=== PATIENT | male | born 1990 | race African-American/Black ===

== ENCOUNTER 2017-02-25 08:50 | Emergency (ER) | payer OTHER ==
[~2017-02-25] VITALS: Ht 175.3 cm; Wt 72.6 kg
[~2017-02-25 08:50] MED LIST: HYDR-2758 PO; INSU100I16 SQ; ONDA4TAB10 SL; OXAP600T PO; TRAM50TA PO
[2017-02-25 08:58] VITALS: BP 131/77
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
== END 2017-02-25 09:50 | disposition home or self-care (01) ==
LOC: ER 08:50
DX: S42.102A Fracture of unspecified part of scapula, left shoulder, initial encounter for closed fracture (principal); E11.9 Type 2 diabetes mellitus without complications; F12.10 Cannabis abuse, uncomplicated; X58.XXXA Exposure to other specified factors, initial encounter; Y93.89 Activity, other specified; Y99.8 Other external cause status; Y92.89 Other specified places as the place of occurrence of the external cause
CPT/HCPCS: 73030; 99284

== ENCOUNTER 2017-04-20 11:35 | Emergency (ER) | payer OTHER ==
[2017-04-20 11:50] VITALS: BP 118/69
[2017-04-20] MEDS ORDERED: KETOROLAC 60 MG/2 ML VIAL. IM ONE (12:25)
[2017-04-20] MEDS ORDERED: NAPR500T PO (12:27)
[2017-04-20] MEDS ORDERED: HYDR-2758 PO (12:27)
[2017-04-20] MEDS ORDERED: TIZA4CAP3 PO (12:27)
[2017-04-20] MEDS ORDERED: DIAZ5TAB PO (12:27)
--- NOTE | 2017-04-20 12:27 | PHYS DOC ---
Past History Past Medical History: No Pertinent History, Diabetes Past Surgical History: No Surgical History Alcohol Use: Occasionally Drug Use: Marijuana Adult General Chief Complaint Chief Complaint: Neck Pain [facility] HPI She is a pleasant otherwise healthy 26-year-old male who tonight weeks ago fell and mood theater striking the left side of his neck on a couple. He spirits immediate pain without paresthesias midline neck pain or weakness in his upper extremity's. He was seen at another hospital facility in the ER diagnosed with a muscle strain and sent home with anti-inflammatories. It is been to half weeks since he began to treatments. Because of his job he has to continue to move to the right and left turning his neck exacerbating the pain. The pain is still achy and dull and mild 7 of 10 with movements to 10 at rest. Patient says the pain is progressively worse over the course the day although that does not cause any weakness in his arms or numbness and tingling in his hands or arms the pain is worse with range of motion at the shoulder and movement of the neck. Patient denies any other symptoms of night sweats, weight loss, nausea, vomiting, changes in vision, anterior neck pain problems swallowing, change in voice or other symptoms. Patient is looking for just symptomatic treatment single back to work and does not make him sedated and also referral to a primary care doctor that can help take care of his long-term issues. He is a diabetic on insulin and is very well controlled. Review of Systems Review of Systems Constitutional: Denies fever or chills [] Eyes: Denies change in visual acuity, redness, or eye pain [] HENT: Denies nasal congestion or sore throat [] Respiratory: Denies cough or shortness of breath [] Cardiovascular: No additional information not addressed in HPI [] GI: Denies abdominal pain, nausea, vomiting, bloody stools or diarrhea [] : Denies dysuria or hematuria [] Musculoskeletal: Complains primary of left-sided neck pain with radiation to the left shoulder blade. Integument: Denies rash or skin lesions [] Neurologic: Denies headache, focal weakness or sensory changes [] Endocrine: Denies polyuria or polydipsia [] Allergies Allergies Allergies Coded Allergies Type Severity Reaction Last Updated Verified No Known Drug Allergies 02/09/16 No Physical Exam Physical Exam I have reviewed this patient's vital signs on arrival and within normal limits except as her it which is 51 which is bradycardic but is asymptomatic. Constitutional: Well developed, well nourished, no acute distress, non-toxic appearance. [] HENT: Normocephalic, atraumatic, bilateral external ears normal, Eyes: PERRLA, EOMI, conjunctiva normal, no discharge. [] Neck: Is a significant decreased range of motion in the neck there is tenderness to palpation over the PC his muscle on the left. And the sternocleidomastoid on the left as well. He's got marked tenderness to palpation of the trapezius muscle as it inserts into the lateral shoulder and tenderness palpation over the middle and upper portions of the trapezius muscle. Skin: Warm, dry, no erythema, no rash. [] Back: No tenderness, no CVA tenderness. [] Extremities: No tenderness, no cyanosis, no clubbing, ROM intact, no edema. [] Neurologic: Alert and oriented X 3, normal motor function, normal sensory function, no focal deficits noted. [] EKG EKG [] Radiology/Procedures Radiology/Procedures [] Course & Med Decision Making Course & Med Decision Making Pertinent Labs and Imaging studies reviewed. (See chart for details) she presents with 2-1/2 week history of neck spasm and pain after a fall from standing. Patient demonstrates easily reproducible neck pain on exam. Patient has a normal neuro exam with normal strength in his upper extremities with no history of paresthesias even transiently. Patient has no midline tenderness palpation or night sweats weight loss and no other red flags are concerning signs for possible cervical neck fracture or cervical radiculopathy. Patient was provided muscle spasm medications and anti-inflammatories and for breakthrough pain until he can see his prior care doctor. We'll provide him a list of primary care doctors are accepting new patients in the local area. by Nexus criteria patient does not have a need for CT of the neck. Or imaging. Cervical neck strain. Torticollis. [] Dragon Disclaimer Dragon Disclaimer This chart was dictated in whole or in part using Voice Recognition software in a busy, high-work load, and often noisy Emergency Department environment. It may contain unintended and wholly unrecognized errors or omissions. Departure Departure: Impression: Primary Impression: Neck strain Additional Impression: Torticollis Disposition: HOME, SELF-CARE Condition: IMPROVED Referrals: PCP,NO (PCP) Patient Instructions: Soft Tissue Injury of the Neck, Torticollis, Acute Additional Instructions: Please Return for any new or increasing symptoms or given any question concerns. We had no reason to image her neck today as there is no midline tenderness and no neurologic deficits. But if your symptoms are persistent I may recommend an MRI of the neck by her primary care doctor if her symptoms continue. Scripts Tizanidine Hcl (ZANAFLEX) 4 Mg Capsule 4 MG PO PRN Q8HRS Y for MUSCLE SPASMS for 5 Days, #15 CAP Prov: DINA MORENO MD 04/20/17 Diazepam (VALIUM) 5 Mg Tablet 5 MG PO TID for 5 Days, #15 TAB Please use one tablet every 8 hours as needed for muscle spasms. Do not drink alcohol or use other narcotics with this medication. Prov: DINA MORENO MD 04/20/17 Naproxen (NAPROSYN) 500 Mg Tablet 1 TAB PO BID, #20 TAB 1 Refill Prov: DINA MORENO MD 04/20/17 Hydrocodone Bit/Acetaminophen (HYDROCODONE-APAP 5-325 ) 1 Each Tablet 1 TAB PO PRN Q6HRS Y for PAIN for 5 Days, #10 TAB 0 Refills Prov: DINA MORENO MD 04/20/17 Problem Qualifiers DINA MORENO MD Apr 20, 2017 12:27
== END 2017-04-20 12:40 | disposition home or self-care (01) ==
LOC: ER 11:35
DX: S16.1XXA Strain of muscle, fascia and tendon at neck level, initial encounter (principal); M43.6 Torticollis; E11.9 Type 2 diabetes mellitus without complications; F12.10 Cannabis abuse, uncomplicated; Z79.4 Long term (current) use of insulin; W19.XXXA Unspecified fall, initial encounter; Y93.89 Activity, other specified; Y99.8 Other external cause status; Y92.89 Other specified places as the place of occurrence of the external cause
CPT/HCPCS: 96372; 99283; J1885

== ENCOUNTER 2017-07-27 01:20 | Emergency (ER) | payer OTHER ==
[~2017-07-27] VITALS: Ht 175.3 cm; Wt 72.6 kg
[~2017-07-27 01:20] MED LIST changes: +DIAZ5TAB PO; +NAPR500T PO; +TIZA4CAP3 PO
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
--- NOTE | 2017-07-27 02:41 | RAD ---
INDICATION: [id number] Syncopal episode tonight, hit posterior part of head, headache and neck pain. No priors. COMPARISON: None. TECHNIQUE: Axial CT images obtained through the head and cervical spine without intravenous contrast. Coronal and sagittal reformats processed of cervical spine. One or more of the following individualized dose reduction techniques were utilized for this examination: 1. Automated exposure control; 2. Adjustment of the mA and/or kV according to patient size; 3. Use of iterative reconstruction technique. FINDINGS: Head: No intracranial hemorrhage. No midline shift. Basal cisterns patents. Ventricles and sulci are within normal limits. No acute osseous abnormality. Orbits and paranasal sinuses unremarkable. Cervical: No definite acute fracture. No significant malalignment. No evidence of perivertebral hematoma. Fusion defect anterior arch of C1. IMPRESSION: No acute intracranial hemorrhage. No definite acute fracture or dislocation of the cervical spine. Electronically signed by: Bill Pete MD (07/27/2017 2:37 AM) [facility]
[2017-07-27 02:55] VITALS: BP 115/66
--- NOTE | 2017-07-27 02:57 | EKG ---
[address] [address] Test Date: 2017-07-27 Test Time: 02:53:02 Pat Name: JEFE ARREDONDO Department: Room: Gender: M Sr. Media Manager: MARIBELL : 1990 Requested By: MARIA VICTORIA NORRIS Order Number: [id number] Reading MD: Juan Zamora MD Measurements Intervals [place] Rate: 59 P: 51 NM: 166 QRS: 78 QRSD: 102 T: 55 QT: 388 QTc: 388 Interpretive Statements SINUS RHYTHM NON-SPECIFIC ST/T CHANGES Electronically Signed On 07-30-2017 10:51:46 CLIENT SERVICES ASSISTANT by Juan Zamora MD
== END 2017-07-27 03:05 | disposition home or self-care (01) ==
LOC: ER 01:20
DX: R55 Syncope and collapse (principal); R51 Headache; E11.9 Type 2 diabetes mellitus without complications; F17.210 Nicotine dependence, cigarettes, uncomplicated
CPT/HCPCS: 70450; 72125; 82947; 93005; 99285-25

== ENCOUNTER 2017-07-31 08:13 | Emergency (ER) | payer OTHER ==
--- NOTE | 2017-07-31 08:34 | EKG ---
[address] [address] Test Date: 2017-07-31 Test Time: 08:23:05 Pat Name: JEFE ARREDONDO Department: Room: Gender: M Quality Assurance Monitor: MARIBELL : 1990 Requested By: DIANE STEELE Order Number: [id number] Reading MD: Juan Zamora MD Measurements Intervals [place] Rate: 56 P: NC: QRS: 80 QRSD: 100 T: 142 QT: 398 QTc: 386 Interpretive Statements SUSPECT SINUS RHYTHM - P WAVES NOT WELL VISUALIZED. CANNOT RULE OUT JUNCTIONAL RHYTHM NON-SPECIFIC ST/T CHANGES Electronically Signed On 07-31-2017 15:31:23 SCREEDMAN by Juan Zamora MD
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
[2017-07-31 09:10] VITALS: BP 116/78
== END 2017-07-31 09:10 | disposition home or self-care (01) ==
LOC: ER 08:13
DX: F41.9 Anxiety disorder, unspecified (principal); E11.9 Type 2 diabetes mellitus without complications; F17.210 Nicotine dependence, cigarettes, uncomplicated
CPT/HCPCS: 93005; 99283-25

== ENCOUNTER 2017-08-03 20:33 | Emergency (ER) | payer OTHER ==
[~2017-08-03] VITALS: Ht 175.3 cm; Wt 67.1 kg
[2017-08-03 20:52] VITALS: BP 115/64
[2017-08-03 21:40] LABS: BASO % 1 % (0-3); EOS # 0.2 x10^3/uL (0.0-0.7); EOS % 5 % (0-3); HEMATOCRIT 37.2 % (39.0-53.0); HEMOGLOBIN 12.9 g/dL (13.0-17.5); LYMPH # 2.8 x10^3/uL (1.0-4.8); LYMPH % 53 % (24-48); MEAN CORPUSCULAR HEMOGLOBIN 37 pg (25-35); MEAN CORPUSCULAR HGB CONC 35 g/dL (31-37); MEAN CORPUSCULAR VOLUME 107 fL (79-100); MONO # 0.3 x10^3/uL (0.0-1.1); MONO % 6 % (0-9); NEUT # 1.9 x10^3uL (1.8-7.7); NEUT % 36 % (31-73); PLATELET COUNT 274 x10^3/uL (140-400); RED BLOOD COUNT 3.49 x10^6/uL (4.30-5.70); RED CELL DISTRIBUTION WIDTH 12.2 % (11.5-14.5); WHITE BLOOD COUNT 5.3 x10^3/uL (4.0-11.0)
[2017-08-03 21:49] LABS: ALBUMIN 3.7 g/dL (3.4-5.0); ALBUMIN/GLOBULIN RATIO 1.1 (1.0-1.7); CREATININE 0.9 mg/dL (0.7-1.3); GFR 122.5; TOTAL BILIRUBIN 0.4 mg/dL (0.2-1.0); TOTAL PROTEIN 7.2 g/dL (6.4-8.2)
--- NOTE | 2017-08-03 21:56 | RAD ---
Indication: Trauma. History of anxiety induced syncope. TECHNIQUE: CT head without IV contrast COMPARISON: Previous study from 07/27/2017 FINDINGS: No pathologic extra-axial or intra-axial fluid collection. No acute intracranial bleed. No midline shift. The ventricles and basal cisterns are within normal limits. No focal loss of cash-white differentiation. Visualized orbits within normal limits. No acute fractures. IMPRESSION: No acute findings. Electronically signed by: Tee Smith DO (08/03/2017 9:52 PM) [facility]
--- NOTE | 2017-08-03 22:11 | PHYS DOC ---
Past History Past Medical History: Anxiety, Bipolar, Depression, Diabetes Additional Past Medical Histor: dx 2009 with DM Past Surgical History: No Surgical History Smoking: Cigarettes Alcohol Use: None Drug Use: None Adult General Chief Complaint Chief Complaint: SYNCOPE HPI HPI Patient is a 76-year-old gentleman with history significant for anxiety and syncopal episodes is currently being worked up extensively by his primary care physician for this presents here today secondary to another syncopal episode. Patient reports he has a couple episode yesterday. Patient reports he believes it is secondary to anxiety and stress. Patient reports she's had a Holter monitor and is scheduled to be followed up by cardiology. Patient denies any other symptomatology at this time. Patient has any fevers shakes chills nausea vomiting diarrhea chest pain shortness of breath cough cold or rhinorrhea. Patient has any change in appetite. Patient has a dysuria frequency urgency. Patient reports felt dizzy felt down and hit his head and still has a headache secondary to the fall. Patient does have a history significant for IDDM, no hypertension liver longer kidney problems. Patient doesn't have a history of any strokes or heart attacks in the past. Patient reports he smokes tobacco no alcohol or drugs. Constitutional: Denies fever or chills Eyes: Denies change in visual acuity, redness, or eye pain HENT: Denies nasal congestion or sore throat Respiratory: Denies cough or shortness of breath Cardiovascular: No additional information not addressed in HPI All other systems were reviewed and found to be within normal limits, except as documented in this note. Constitutional: Well developed, well nourished, no acute distress, non-toxic appearance. HENT: Normocephalic, atraumatic, bilateral external ears normal, oropharynx moist, no oral exudates, nose normal. Eyes: PERRLA, EOMI, conjunctiva normal, no discharge. Neck: Normal range of motion, no tenderness, supple, no stridor. Cardiovascular:Heart rate regular rhythm, tion Abdomen: Bowel sounds normal, soft, no tenderness, no masses, no pulsatile masses. Skin: Warm, dry, no erythema, no rash. Back: No tenderness, no CVA tenderness. Extremities: No tenderness, no cyanosis, no clubbing, ROM intact, no edema. Neurologic: Alert and oriented X 3, normal motor function, normal sensory function, no focal deficits noted. Psychologic: Affect normal, judgement normal, mood normal. CT scan of the head is normal. CBC CMP within normal limits. Assessment and plan 26-year-old gentleman who presents here today secondary to syncopal episode. Patient is currently being extensively worked up for this by his primary care physician. Patient was here on Sunday and has CT scan of the head which was normal however secondary to trauma a repeat CT scan was performed today which reveal any acute pathology. Patient be discharged home with instructions follow- up with primary care physician. Etiology of his syncopal episodes are unclear but possibility of high that might be related to stress per the patient's suspicion. Allergies Allergies Allergies Coded Allergies Type Severity Reaction Last Updated Verified No Known Drug Allergies 02/09/16 No Current Patient Data Vital Signs Vital Signs Date Time Temp Pulse Resp B/P (MAP) Pulse Ox O2 Delivery O2 Flow Rate FiO2 08/03/17 20:52 98.8 87 18 98 Room Air Lab Results Laboratory Tests Test 08/03/17 21:19 White Blood Count 5.3 x10^3/uL (4.0-11.0) Red Blood Count 3.49 x10^6/uL (4.30-5.70) L Hemoglobin 12.9 g/dL (13.0-17.5) L Hematocrit 37.2 % (39.0-53.0) L Mean Corpuscular Volume 107 fL (79-100) H Mean Corpuscular Hemoglobin 37 pg (25-35) H Mean Corpuscular Hemoglobin Concent 35 g/dL (31-37) Red Cell Distribution Width 12.2 % (11.5-14.5) Platelet Count 274 x10^3/uL (140-400) Neutrophils (%) (Auto) 36 % (31-73) Lymphocytes (%) (Auto) 53 % (24-48) H Monocytes (%) (Auto) 6 % (0-9) Eosinophils (%) (Auto) 5 % (0-3) H Basophils (%) (Auto) 1 % (0-3) Neutrophils # (Auto) 1.9 x10^3uL (1.8-7.7) Lymphocytes # (Auto) 2.8 x10^3/uL (1.0-4.8) Monocytes # (Auto) 0.3 x10^3/uL (0.0-1.1) Eosinophils # (Auto) 0.2 x10^3/uL (0.0-0.7) Basophils # (Auto) 0.0 x10^3/uL (0.0-0.2) Sodium Level 141 mmol/L (136-145) Potassium Level 4.0 mmol/L (3.5-5.1) Chloride Level 105 mmol/L (98-107) Carbon Dioxide Level 29 mmol/L (21-32) Anion Gap 7 (6-14) Blood Urea Nitrogen 12 mg/dL (8-26) Creatinine 0.9 mg/dL (0.7-1.3) Estimated GFR (Cockcroft-Gault) 122.5 BUN/Creatinine Ratio 13 (6-20) Glucose Level 85 mg/dL (70-99) Calcium Level 9.0 mg/dL (8.5-10.1) Total Bilirubin 0.4 mg/dL (0.2-1.0) Aspartate Amino Transferase (AST) 11 U/L (15-37) L Alanine Aminotransferase (ALT) 19 U/L (16-63) Alkaline Phosphatase 116 U/L (46-116) Troponin I Quantitative < 0.017 ng/mL (0-0.055) Total Protein 7.2 g/dL (6.4-8.2) Albumin 3.7 g/dL (3.4-5.0) Albumin/Globulin Ratio 1.1 (1.0-1.7) EKG EKG [] Radiology/Procedures Radiology/Procedures [] Course & Med Decision Making Course & Med Decision Making Pertinent Labs and Imaging studies reviewed. (See chart for details) [] Dragon Disclaimer Dragon Disclaimer This electronic medical record was generated, in whole or in part, using a voice recognition dictation system. Departure Departure: Impression: Primary Impression: Concussion Additional Impression: Syncope Disposition: 01 HOME, SELF-CARE Condition: IMPROVED Referrals: JARAD ROMERO (PCP) Patient Instructions: Syncope Problem Qualifiers JUAN BUSBY MD Aug 03, 2017 22:11
--- NOTE | 2017-08-03 22:54 | EKG ---
[address] [address] Test Date: 2017-08-03 Test Time: 21:38:56 Pat Name: JEFE ARREDONDO Department: Room: Gender: M Disassembler: MARIBELL : 1990 Requested By: JUAN BUSBY Order Number: [id number] Reading MD: Juan Zamora MD Measurements Intervals [place] Rate: 88 P: 34 CA: 180 QRS: 79 QRSD: 96 T: 52 QT: 322 QTc: 393 Interpretive Statements SINUS RHYTHM INCOMPLETE RIGHT BUNDLE BRANCH BLOCK NON-SPECIFIC ST/T CHANGES (J-POINT ELEVATION) Electronically Signed On 08-07-2017 11:38:46 VIDEO PRODUCTION ENGINEER by Juan Zamora MD
== END 2017-08-03 22:38 | disposition home or self-care (01) ==
LOC: ER 20:33
DX: S06.0X0A Concussion without loss of consciousness, initial encounter (principal); R55 Syncope and collapse; E11.9 Type 2 diabetes mellitus without complications; F17.210 Nicotine dependence, cigarettes, uncomplicated; F41.9 Anxiety disorder, unspecified; F32.9 Major depressive disorder, single episode, unspecified; W19.XXXA Unspecified fall, initial encounter; Y93.89 Activity, other specified; Y99.8 Other external cause status; Y92.89 Other specified places as the place of occurrence of the external cause
CPT/HCPCS: 36415; 70450; 80053; 84484; 85025; 93005; 99285-25

== ENCOUNTER 2017-08-17 14:45 | Emergency (ER) | payer OTHER ==
[2017-08-17] MEDS ORDERED: KETOROLAC 60 MG/2 ML VIAL. IM ONE (15:10)
[2017-08-17] MEDS ORDERED: oxyCODONE/APAP 5/325 1 TAB TABLET PO ONE (15:10)
[2017-08-17] MEDS ORDERED: diazePAM 5 MG TABLET PO ONE (15:10)
--- NOTE | 2017-08-17 15:34 | RAD ---
CT of the cervical spine without contrast, 08/17/2017: History: Seizure, syncope Noncontrast scans were obtained with multiplanar reconstructions produced. There is a small defect with sclerotic margins in the anterior arch of C1, unchanged since 07/27/2017. The appearance suggests a congenital fusion defect. No acute fracture or dislocation is identified. No significant narrowing of the spinal canal is evident. The visualized paraspinal soft tissues are unremarkable. IMPRESSION: No acute cervical spine abnormality is detected. PQRS Compliance Statement: One or more of the following individualized dose reduction techniques were utilized for this examination: 1. Automated exposure control 2. Adjustment of the mA and/or kV according to patient size 3. Use of iterative reconstruction technique
--- NOTE | 2017-08-17 15:39 | RAD ---
HIP RIGHT 2V WITH PELVIS Clinical Indication: PAIN S/P FALL Comparison: None. Findings: No acute fracture or malalignment. Incompletely visualized left femoral intramedullary jesus and screw fixation. The joint spaces are maintained. Bony mineralization is normal for the patient's age. No significant soft tissue abnormality. No radiopaque foreign body. IMPRESSION: No acute fracture or malalignment.
--- NOTE | 2017-08-17 15:40 | RAD ---
SHOULDER 2+V RIGHT Clinical Indication: PAIN S/P FALL Comparison: None. Findings: No acute fracture or malalignment. The joint spaces are maintained. Bony mineralization is normal for the patient's age. No significant soft tissue abnormality. No radiopaque foreign body. IMPRESSION: No acute fracture or malalignment.
--- NOTE | 2017-08-17 16:02 | RAD ---
CT HEAD AND FACE WITHOUT CONTRAST History: PAIN S/P FALL Comparison: CT head dated 08/03/2017, 07/27/2017. Procedure: Axial images are obtained of the head from the skull base through the vertex without IV contrast. Axial helical images of the face were obtained without contrast. Axial and coronal reconstruction was performed. Head Findings: Ingram-white matter differentiation is preserved. The ventricles and sulci are normal for the patient's age.. No mass-effect, midline shift, hemorrhage or obvious acute infarction is identified. Unchanged right inferior frontal prominent CSF space. Basilar cisterns are patent. Bone windows demonstrate no significant calvarial abnormality. Mastoid air cells are well aerated. Face Findings: There is no acute facial bone fracture. The paranasal sinuses are clear. The orbits are normal. The globes are intact. The nasal septum is mostly midline. The ostiomeatal complexes are narrow but patent. IMPRESSION: 1. No acute intracranial abnormality. 2. No acute facial bone fracture. 3. Right inferior frontal prominent CSF space is unchanged compared to 1117 exam, but was not clearly seen on 07/27/2017 exam, possibly due to motion. Short-term follow-up CT could be obtained. PQRS Compliance Statement: One or more of the following individualized dose reduction techniques were utilized for this examination: 1. Automated exposure control 2. Adjustment of the mA and/or kV according to patient size 3. Use of iterative reconstruction technique
[2017-08-17] MEDS ORDERED: HYDR-971 PO (16:07)
--- NOTE | 2017-08-17 16:08 | PHYS DOC ---
Past History Past Medical History: Anxiety, Bipolar, Depression, Diabetes Additional Past Medical Histor: dx 2009 with DM Past Surgical History: No Surgical History Smoking: Cigarettes Alcohol Use: None Drug Use: None Adult General Chief Complaint Chief Complaint: NEAR SYCOPE [facility] HPI Patient is a 26-year-old male brought in by EMS for evaluation of apparent syncopal episode. Reportedly patient was outside having a confrontation and having some difficulty at home when he started hyperventilating and then became dizzy and collapsed striking his head against the madden of a car and landing on his right side and some grass. Patient is complaining of right-sided facial pain and neck pain and shoulder pain and hip pain. Patient has known anxiety disorder and was prescribed Valium for intermittent panic attacks. He is in nad with normal VS. Review of Systems Review of Systems Constitutional: Denies fever or chills [] Respiratory: Denies cough or shortness of breath [] Cardiovascular: No additional information not addressed in HPI [] GI: Denies abdominal pain, nausea, vomiting, bloody stools or diarrhea [] Musculoskeletal: Denies back pain. + hip joint pain [] Integument: Denies skin lesions [] Neurologic: + headache. No focal weakness or sensory changes [] All other systems were reviewed and found to be within normal limits, except as documented in this note. Current Medications Current Medications Current Medications Medications (Trade) Dose Ordered Sig/Chris Start Time Stop Time Status Last Admin Dose Admin Diazepam (Valium) 5 mg 1X ONCE 08/17/17 15:10 08/17/17 15:11 DC 08/17/17 15:46 5 MG Ketorolac Tromethamine (Toradol) 60 mg 1X ONCE 08/17/17 15:10 08/17/17 15:11 DC 08/17/17 15:45 60 MG Oxycodone/ Acetaminophen (Percocet 5/325) 2 tab 1X ONCE 08/17/17 15:10 08/17/17 15:11 DC 08/17/17 15:46 2 TAB Allergies Allergies Allergies Coded Allergies Type Severity Reaction Last Updated Verified No Known Drug Allergies 02/09/16 No Physical Exam Physical Exam Constitutional: Well developed, well nourished, no acute distress, non-toxic appearance. [] HENT: Normocephalic, atraumatic, bilateral external ears normal, oropharynx moist, no oral exudates, nose normal. [] Eyes: PERRLA, EOMI, conjunctiva normal, no discharge. [] Neck: Normal range of motion, no tenderness, supple, no stridor. [] Cardiovascular:Heart rate regular rhythm, no murmur [] Lungs & Thorax: Bilateral breath sounds clear to auscultation [] Abdomen: Bowel sounds normal, soft, no tenderness, no masses, no pulsatile masses. [] Skin: Warm, dry, no erythema, no rash. [] Back: No tenderness, no CVA tenderness. [] Extremities: + pain with palpation and ROM of R shoulder and hip. Other joints ranged with no pain. Neurologic: Alert and oriented X 3, normal motor function, normal sensory function, no focal deficits noted. [] Current Patient Data Vital Signs Vital Signs Date Time Temp Pulse Resp B/P (MAP) Pulse Ox O2 Delivery O2 Flow Rate FiO2 08/17/17 15:46 20 97 Room Air 08/17/17 15:01 99.2 79 EKG EKG [] Radiology/Procedures Radiology/Procedures CT HEAD AND FACE WITHOUT CONTRAST History: PAIN S/P FALL Comparison: CT head dated 08/03/2017, 07/27/2017. Procedure: Axial images are obtained of the head from the skull base through the vertex without IV contrast. Axial helical images of the face were obtained without contrast. Axial and coronal reconstruction was performed. Head Findings: Ingram-white matter differentiation is preserved. The ventricles and sulci are normal for the patient's age.. No mass-effect, midline shift, hemorrhage or obvious acute infarction is identified. Unchanged right inferior frontal prominent CSF space. Basilar cisterns are patent. Bone windows demonstrate no significant calvarial abnormality. Mastoid air cells are well aerated. Face Findings: There is no acute facial bone fracture. The paranasal sinuses are clear. The orbits are normal. The globes are intact. The nasal septum is mostly midline. The ostiomeatal complexes are narrow but patent. IMPRESSION: 1. No acute intracranial abnormality. 2. No acute facial bone fracture. 3. Right inferior frontal prominent CSF space is unchanged compared to 1117 exam, but was not clearly seen on 07/27/2017 exam, possibly due to motion. Short-term follow-up CT could be obtained. PQRS Compliance Statement: One or more of the following individualized dose reduction techniques were utilized for this examination: 1. Automated exposure control 2. Adjustment of the mA and/or kV according to patient size 3. Use of iterative reconstruction technique DICTATED AND SIGNED BY: DAVID DASH MD DATE: 08/17/171540 Course & Med Decision Making Course & Med Decision Making Patient with apparent hyperventilating episode and then had a syncope and collapse. His workup is unremarkable and his initial and repeat neurologic exams are normal and his vital signs have remained normal throughout his ED stay as well. Patient has improved pain and he is requesting to go home so he' ll be discharged in stable condition with instruction take ibuprofen for pain and will prescribe [place] for breakthrough pain and told to follow with his primary care provider in 3-4 days and come back to the ED sooner with any new worsening symptoms. Patient aware and agreeable with plan and verbalized understanding of the above instructions. Dragon Disclaimer Dragon Disclaimer This electronic medical record was generated, in whole or in part, using a voice recognition dictation system. Departure Departure: Impression: Primary Impression: Syncope and collapse Additional Impressions: Anxiety Shoulder sprain Hip sprain Disposition: HOME, SELF-CARE Condition: STABLE Referrals: JARAD ROMERO (PCP) Patient Instructions: Concussion and Brain Injury Additional Instructions: TAKE 400MG OF IBUPROFEN EVERY 6 HOURS FOR PAIN AND THE NORCO FOR BREAKTHROUGH PAIN. FOLLOW WITH YOUR DOCTOR NEXT WEEK AND COME BACK TO THE ED WITH ANY NEW OR WORSENING SYMPTOMS. THANK YOU! Scripts Hydrocodone Bit/Acetaminophen (NORCO 5-325 TABLET) 1 Each Tablet 1 TAB PO PRN Q6HRS Y for PAIN, #14 TAB 0 Refills Prov: JAYLENE ROBLES DO 08/17/17 Problem Qualifiers JAYLENE ROBLES DO Aug 17, 2017 16:08
[2017-08-17 16:19] VITALS: BP 134/80
== END 2017-08-17 16:21 | disposition home or self-care (01) ==
LOC: ER 14:45
DX: R55 Syncope and collapse (principal); F41.9 Anxiety disorder, unspecified; S43.401A Unspecified sprain of right shoulder joint, initial encounter; S73.101A Unspecified sprain of right hip, initial encounter; R51 Headache; M54.2 Cervicalgia; E11.9 Type 2 diabetes mellitus without complications; F17.210 Nicotine dependence, cigarettes, uncomplicated; F31.9 Bipolar disorder, unspecified; W18.09XA Striking against other object with subsequent fall, initial encounter; Y93.89 Activity, other specified; Y99.8 Other external cause status; Y92.89 Other specified places as the place of occurrence of the external cause
CPT/HCPCS: 70450; 70486; 72125; 73030; 73502; 96372; 99284; J1885

== ENCOUNTER 2017-08-19 09:20 | Emergency (ER) | payer OTHER ==
[2017-08-19 09:20] VITALS: BP 103/52
[~2017-08-19 09:20] MED LIST changes: +HYDR-971 PO
[2017-08-19 09:44] LABS: BASO # 0.1 x10^3/uL (0.0-0.2); BASO % 2 % (0-3); EOS # 0.2 x10^3/uL (0.0-0.7); EOS % 4 % (0-3); HEMATOCRIT 38.2 % (39.0-53.0); HEMOGLOBIN 13.3 g/dL (13.0-17.5); LYMPH # 1.7 x10^3/uL (1.0-4.8); LYMPH % 38 % (24-48); MEAN CORPUSCULAR HEMOGLOBIN 37 pg (25-35); MEAN CORPUSCULAR HGB CONC 35 g/dL (31-37); MEAN CORPUSCULAR VOLUME 108 fL (79-100); MONO # 0.3 x10^3/uL (0.0-1.1); MONO % 6 % (0-9); NEUT # 2.3 x10^3uL (1.8-7.7); NEUT % 50 % (31-73); PLATELET COUNT 348 x10^3/uL (140-400); RED BLOOD COUNT 3.55 x10^6/uL (4.30-5.70); RED CELL DISTRIBUTION WIDTH 12.6 % (11.5-14.5); WHITE BLOOD COUNT 4.6 x10^3/uL (4.0-11.0)
[2017-08-19 09:58] LABS: CALCIUM 8.9 mg/dL (8.5-10.1); CREATININE 1.1 mg/dL (0.7-1.3); GFR 97.2; POTASSIUM 3.5 mmol/L (3.5-5.1); TOTAL BILIRUBIN 0.5 mg/dL (0.2-1.0); TOTAL PROTEIN 7.9 g/dL (6.4-8.2)
--- NOTE | 2017-08-19 10:15 | PHYS DOC ---
Past History Past Medical History: Anxiety, Bipolar, Depression Additional Past Medical Histor: dx 2009 with DM Past Surgical History: No Surgical History Smoking: Cigarettes Alcohol Use: None Drug Use: None General Pediatric Assessment Chief Complaint passing out History of Present Illness 26-year-old male patient with history of bipolar disorder and frequent emergency room visits brought in by EMS because episodes of passing out and possible seizure. Patient had 4 or 5 episodes of loss of consciousness and EMS gave him 5 mg of Versed after he had 2 other episodes of passing out on the rout that last for few seconds without seizure activity. Patient is alert and oriented pulsatile condition and state he was not able to sleep well last night because he was thinking about child support and court schedule and stressful condition going on in his life. Patient states taking Trileptal and Valium for his bipolar that caused syncopal episode. Patient denies suicidal and homicidal ideation hallucination but is every tearful and anxious and getting agitated with questions. Review of Systems Constitutional: Denies fever or chills [] Eyes: Denies change in visual acuity, redness, or eye pain [] HENT: Denies nasal congestion or sore throat [] Respiratory: Denies cough or shortness of breath [] Cardiovascular: No additional information not addressed in HPI [] GI: Denies abdominal pain, nausea, vomiting, bloody stools or diarrhea [] : Denies dysuria or hematuria [] Musculoskeletal: Denies back pain or joint pain [] Integument: Denies rash or skin lesions [] Neurologic: Denies headache, focal weakness or sensory changes [] Endocrine: Denies polyuria or polydipsia [] All other systems were reviewed and found to be within normal limits, except as documented in this note. Allergies Allergies Coded Allergies Type Severity Reaction Last Updated Verified No Known Drug Allergies 02/09/16 No Physical Exam Constitutional: mild distress, non-toxic appearance, anxious HENT: Normocephalic, atraumatic, bilateral external ears normal, oropharynx moist, no oral exudates, nose normal. Eyes: PERLL, EOMI, conjunctiva normal, no discharge. Neck: Normal range of motion, no tenderness, supple, no stridor. Cardiovascular: Normal heart rate, normal rhythm, no murmurs, no rubs, no gallops. Thorax and Lungs: Normal breath sounds, no respiratory distress, no wheezing, no chest tenderness, no retractions, no accessory muscle use. Abdomen: Bowel sounds normal, soft, no tenderness, no masses, no pulsatile masses. Skin: Warm, dry, no erythema, no rash. Back: No tenderness, no CVA tenderness. Extremeties: Intact distal pulses, no tenderness, no cyanosis, no clubbing, ROM intact, no edema. Musculoskeletal: Good ROM in all major joints, no tenderness to palpation or major deformities noted. Neurologic: Alert and oriented X 3, normal motor function, normal sensory function, no focal deficits noted. Psychologic:anxious and agitated Radiology/Procedures [] Current Patient Data Laboratory Tests Test 08/19/17 09:29 White Blood Count 4.6 x10^3/uL (4.0-11.0) Red Blood Count 3.55 x10^6/uL (4.30-5.70) L Hemoglobin 13.3 g/dL (13.0-17.5) Hematocrit 38.2 % (39.0-53.0) L Mean Corpuscular Volume 108 fL (79-100) H Mean Corpuscular Hemoglobin 37 pg (25-35) H Mean Corpuscular Hemoglobin Concent 35 g/dL (31-37) Red Cell Distribution Width 12.6 % (11.5-14.5) Platelet Count 348 x10^3/uL (140-400) Neutrophils (%) (Auto) 50 % (31-73) Lymphocytes (%) (Auto) 38 % (24-48) Monocytes (%) (Auto) 6 % (0-9) Eosinophils (%) (Auto) 4 % (0-3) H Basophils (%) (Auto) 2 % (0-3) Neutrophils # (Auto) 2.3 x10^3uL (1.8-7.7) Lymphocytes # (Auto) 1.7 x10^3/uL (1.0-4.8) Monocytes # (Auto) 0.3 x10^3/uL (0.0-1.1) Eosinophils # (Auto) 0.2 x10^3/uL (0.0-0.7) Basophils # (Auto) 0.1 x10^3/uL (0.0-0.2) Sodium Level 143 mmol/L (136-145) Potassium Level 3.5 mmol/L (3.5-5.1) Chloride Level 106 mmol/L (98-107) Carbon Dioxide Level 30 mmol/L (21-32) Anion Gap 7 (6-14) Blood Urea Nitrogen 11 mg/dL (8-26) Creatinine 1.1 mg/dL (0.7-1.3) Estimated GFR (Cockcroft-Gault) 97.2 BUN/Creatinine Ratio 10 (6-20) Glucose Level 96 mg/dL (70-99) Calcium Level 8.9 mg/dL (8.5-10.1) Total Bilirubin 0.5 mg/dL (0.2-1.0) Aspartate Amino Transf (AST/SGOT) 23 U/L (15-37) Alanine Aminotransferase (ALT/SGPT) 22 U/L (16-63) Alkaline Phosphatase 86 U/L (46-116) Total Protein 7.9 g/dL (6.4-8.2) Albumin 4.0 g/dL (3.4-5.0) Albumin/Globulin Ratio 1.0 (1.0-1.7) Ethyl Alcohol Level < 10 mg/dL (0-10) Active Scripts Medications Dose Route/Sig Max Daily Dose Days Date Category Dose Instructions [place] 5-325 Tablet (Hydrocodone Bit/Acetaminophen) 1 Each Tablet 1 Tab PO PRN Q6HRS PRN 08/17/17 Rx Zanaflex (Tizanidine HCl) 4 Mg Capsule 4 Mg PO PRN Q8HRS PRN 5 04/20/17 Rx Valium (Diazepam) 5 Mg Tablet 5 Mg PO TID 5 04/20/17 Rx Please use one tablet every 8 hours as needed for muscle spasms. Do not drink alcohol or use other narcotics with this medication. Naprosyn (Naproxen) 500 Mg Tablet 1 Tab PO BID 04/20/17 Rx Hydrocodone-Apap 5-325 (Hydrocodone Bit/Acetaminophen) 1 Each Tablet 1 Tab PO PRN Q6HRS PRN 5 04/20/17 Rx Zofran Odt (Ondansetron) 4 Mg Tab.rapdis 1 Tab SL Q8HRS 05/30/16 Rx Daypro (Oxaprozin) 600 Mg Tablet 1 Tab PO BID 05/30/16 Rx Hydrocodone-Apap 5-325 (Hydrocodone Bit/Acetaminophen) 1 Each Tablet Unknown Dose PO PRN Q6HRS PRN 05/30/16 Reported Tramadol Hcl (Tramadol HCl) 50 Mg Tablet 50 Mg PO PRN Q6HRS PRN 05/30/16 Reported Novolog Mix 70-30 Flexpen Syrn (Insuln Asp Prt/Insulin Aspart) 100 Unit/1 Ml Insuln.pen 15 Unit SQ TID 05/30/16 Reported Course & Med Decision Making Patient was getting agitated easily and decided to leave AMA and remove his IV Patient. Patient had several episodes of intentional syncope without clear loss of consciousness. Patient's significant other/ presented to the ER and stated each time he get anxious he passed out. Patient left the ER without signing AMA form by scort of ED police. Departure Departure: Impression: Primary Impression: Malingerer Additional Impressions: Bipolar disorder Anxiety Disposition: 07 AGAINST MEDICAL ADVICE ([id number]) Condition: STABLE Referrals: JARAD ROMERO (PCP) Problem Qualifiers ANU LUCERO MD Aug 19, 2017 10:15
== END 2017-08-19 10:10 | disposition left against medical advice (07) ==
LOC: ER 09:20
DX: Z76.5 Malingerer [conscious simulation] (principal); F31.9 Bipolar disorder, unspecified; F41.9 Anxiety disorder, unspecified; F17.210 Nicotine dependence, cigarettes, uncomplicated
CPT/HCPCS: 36415; 80053; 85025; 99284; G0480

== ENCOUNTER 2018-02-27 21:48 | Emergency (ER) | payer OTHER ==
[~2018-02-27 21:48] MED LIST changes: +NAPR-683 PO; -NAPR500T PO
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
[2018-02-27 22:57] VITALS: BP 130/79
== END 2018-02-27 22:58 | disposition home or self-care (01) ==
LOC: ER 21:48
DX: S80.02XA Contusion of left knee, initial encounter (principal); F17.210 Nicotine dependence, cigarettes, uncomplicated; E11.9 Type 2 diabetes mellitus without complications; W22.01XA Walked into wall, initial encounter; Y93.89 Activity, other specified; Y99.8 Other external cause status; Y92.89 Other specified places as the place of occurrence of the external cause
CPT/HCPCS: 99281

== ENCOUNTER 2019-10-02 06:05 | Emergency (ER) | payer MEDICAID, OTHER ==
[~2019-10-02] VITALS: Ht 175.3 cm; Wt 64.9 kg
[~2019-10-02 06:05] MED LIST changes: +HYDR-2155 PO; -HYDR-2758 PO; +HYDR-3165 PO; -HYDR-971 PO
[2019-10-02] MEDS ORDERED: IV NORMAL SALINE 1,000ML 1,000 ML IV ONE (06:30)
[2019-10-02] MEDS ORDERED: ONDANSETRON PF 4 MG/2 ML VIAL. IVP ONE (06:30)
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
[2019-10-02] MEDS ORDERED: levETIRAcetam 500 MG/5 ML VIAL IV ONE (06:34)
[2019-10-02] MEDS ORDERED: IV NORMAL SALINE 100ML 100 ML ONE (06:34)
[2019-10-02 06:46] LABS: CALCIUM 8.8 mg/dL (8.5-10.1); CREATININE 0.8 mg/dL (0.7-1.3); GFR 138.3; POTASSIUM 3.5 mmol/L (3.5-5.1)
--- NOTE | 2019-10-02 06:47 | RAD ---
CT head without contrast: Reason for examination: Seizures. Comparison is made to previous study dated 08/17/2017. Axial images were obtained through the brain. No contrast was administered. Exposure: One or more of the following individualized dose reduction techniques were utilized for this examination: 1. Automated exposure control 2. Adjustment of the mA and/or kV according to patient size 3. Use of iterative reconstruction technique. Ventricular systems are symmetric and not dilated. No midline shift is seen. There is no evidence of intracranial hemorrhage, infarct, mass or edema. No abnormalities of seen at the orbits. The paranasal sinuses and mastoid air cells are clear. No acute abnormality seen in the skull. Incidental note is made of a sclerotic defect in the anterior arch of C1 which is unchanged. IMPRESSION: No acute intracranial abnormality evident. Electronically signed by: Cindy Allison MD (10/02/2019 6:44 AM) [id number]
[2019-10-02 06:52] LABS: ALBUMIN 4.2 g/dL (3.4-5.0); ALBUMIN/GLOBULIN RATIO 1.4 (1.0-1.7); TOTAL BILIRUBIN 0.9 mg/dL (0.2-1.0); TOTAL PROTEIN 7.3 g/dL (6.4-8.2)
[2019-10-02 06:54] LABS: BASO # 0.1 x10^3/uL (0.0-0.2); BASO % 2 % (0-3); EOS # 0.2 x10^3/uL (0.0-0.7); EOS % 4 % (0-3); HEMATOCRIT 41.9 % (39.0-53.0); LYMPH # 1.8 x10^3/uL (1.0-4.8); LYMPH % 43 % (24-48); MEAN CORPUSCULAR HEMOGLOBIN 36 pg (25-35); MEAN CORPUSCULAR HGB CONC 34 g/dL (31-37); MEAN CORPUSCULAR VOLUME 108 fL (79-100); MONO # 0.4 x10^3/uL (0.0-1.1); MONO % 10 % (0-9); NEUT # 1.8 x10^3uL (1.8-7.7); NEUT % 41 % (31-73); PLATELET COUNT 273 x10^3/uL (140-400); RED BLOOD COUNT 3.88 x10^6/uL (4.30-5.70); RED CELL DISTRIBUTION WIDTH 12.5 % (11.5-14.5); WHITE BLOOD COUNT 4.3 x10^3/uL (4.0-11.0)
[2019-10-02 07:25] VITALS: BP 110/68
--- NOTE | 2019-10-02 07:28 | EKG ---
[address] [address] Test Date: 2019-10-02 Test Time: 07:02:00 Pat Name: JEFE ARREDONDO Department: Room: Gender: M Creative Developer: : 1990 Requested By: KEEGAN HERNANDEZ Order Number: [id number] Reading MD: Measurements Intervals [place] Rate: 53 P: OR: QRS: 98 QRSD: 100 T: 42 QT: 442 QTc: 417 Interpretive Statements IRREGULAR RHYTHM, NO P-WAVE FOUND RIGHTWARD AXIS QRS(T) CONTOUR ABNORMALITY CONSIDER ANTEROSEPTAL MYOCARDIAL DAMAGE POSSIBLY ABNORMAL ECG RI6.01 No previous ECG available for comparison
--- NOTE | 2019-10-02 07:57 | RAD ---
PROCEDURE: HIP RIGHT 2V WITH PELVIS STUDY DATE: 10/02/2019 CLINICAL INDICATION / HISTORY: Recent fall after seizure with right hip pain.. TECHNIQUE: 2 views of the right hip were obtained along with an AP view of the pelvis. COMPARISON: None FINDINGS: The osseous structures are normally mineralized. There is normal bony alignment present with the femoral heads well-seated within the acetabuli. There is no evidence of acute fracture or dislocation identified. The overlying soft tissues are grossly unremarkable. IMPRESSION: Unremarkable examination of the pelvis and right hip. Electronically signed by: Shellie Lala MD (10/02/2019 7:54 AM) [facility]
[2019-10-02] MEDS ORDERED: KETOROLAC 30 MG/ML VIAL. IVP ONE (08:00)
[2019-10-02 08:08] LABS: BILIRUBIN,URINE NEG (NEG); CLARITY,URINE CLEAR; COLOR,URINE YELLOW; GLUCOSE,URINE NEG (NEG)
[2019-10-02 08:09] LABS: BACTERIA,URINE FEW /HPF (0-FEW); NITRITE,URINE NEG (NEG); RBC,URINE RARE /HPF (0-2); SQUAMOUS EPITHELIAL CELL,UR OCC /LPF; UROBILINOGEN,URINE 0.2 mg/dL (0.2 mg/dL)
[2019-10-02 08:11] LABS: BARBITURATES NEG (NEG); BENZODIAZEPINES NEG (NEG); CANNABINOIDS NEG (NEG); COCAINE NEG (NEG); METHADONE NEG (NEG); OPIATES NEG (NEG); PHENCYCLIDINE NEG (NEG)
[2019-10-02 08:12] LABS: AMPHETAMINE/METHAMPHETAMINE NEG (NEG)
[2019-10-02] MEDS ORDERED: CYCL-331 PO (08:36)
[2019-10-02] MEDS ORDERED: LEVE500T56 PO (08:36)
== END 2019-10-02 08:55 | disposition home or self-care (01) ==
LOC: ER 06:05
DX: R56.9 Unspecified convulsions (principal); G89.29 Other chronic pain; R07.89 Other chest pain; M25.551 Pain in right hip; F41.9 Anxiety disorder, unspecified; F31.9 Bipolar disorder, unspecified; F17.210 Nicotine dependence, cigarettes, uncomplicated
CPT/HCPCS: 36415; 70450; 73502; 80053; 80307; 81001; 82947; 83605; 84484; 85025; 93005; 96365; 96375; 99285; J1885; J1953; J2405; J7030

== ENCOUNTER 2019-10-02 12:26 | Emergency (ER) | payer SELFPAY ==
[~2019-10-02] VITALS: Ht 175.3 cm; Wt 64.9 kg
[~2019-10-02 12:26] MED LIST changes: +CYCL-331 PO; +LEVE500T56 PO
[2019-10-02 13:00] VITALS: BP 130/94
[2019-10-02] MEDS ORDERED: diazePAM 5 MG TABLET PO ONE (13:15)
--- NOTE | 2019-10-02 18:23 | PHYS DOC ---
Past History Past Medical History: Anxiety, Bipolar, Depression, Diabetes, Seizure Additional Past Medical Histor: dx 2009 with DM Past Surgical History: No Surgical History Smoking: Cigarettes Alcohol Use: None Drug Use: None Adult General Chief Complaint Chief Complaint: OTHER COMPLAINTS HPI HPI 28-year-old male returns emergency room after leaving a couple hours ago with continued seizures. He brings to the 80s with him. They say that he had collapsed on the floor at home and had tight arms and tight jaw with some tonic- clonic movements. They're very worried about him. Patient denies any other new symptoms. Review of Systems Review of Systems Constitutional: Denies fever or chills [] Eyes: Denies change in visual acuity, redness, or eye pain [] HENT: Denies nasal congestion or sore throat [] Respiratory: Denies cough or shortness of breath [] Cardiovascular: No additional information not addressed in HPI [] GI: Denies abdominal pain, nausea, vomiting, bloody stools or diarrhea [] : Denies dysuria or hematuria [] Musculoskeletal: Denies back pain or joint pain [] Integument: Denies rash or skin lesions [] Neurologic: Denies headache, focal weakness or sensory changes [] Endocrine: Denies polyuria or polydipsia [] All other systems were reviewed and found to be within normal limits, except as documented in this note. Current Medications Current Medications Current Medications Medications (Trade) Dose Ordered Sig/Chris Start Time Stop Time Status Last Admin Dose Admin Diazepam (Valium) 5 mg 1X ONCE 10/02/19 13:15 10/02/19 13:16 DC 10/02/19 13:13 5 MG Allergies Allergies Allergies Coded Allergies Type Severity Reaction Last Updated Verified No Known Drug Allergies 02/09/16 No Physical Exam Physical Exam Constitutional: Well developed, well nourished, no acute distress, non-toxic appearance. [] HENT: Normocephalic, atraumatic, bilateral external ears normal, oropharynx moist, no oral exudates, nose normal. [] Eyes: PERRLA, EOMI, conjunctiva normal, no discharge. [] Neck: Normal range of motion, no tenderness, supple, no stridor. [] Cardiovascular:Heart rate regular rhythm, no murmur [] Lungs & Thorax: Bilateral breath sounds clear to auscultation [] Abdomen: Bowel sounds normal, soft, no tenderness, no masses, no pulsatile masses. [] Skin: Warm, dry, no erythema, no rash. [] Back: No tenderness, no CVA tenderness. [] Extremities: No tenderness, no cyanosis, no clubbing, ROM intact, no edema. [] Neurologic: Alert and oriented X 3, normal motor function, normal sensory function, no focal deficits noted. [] Psychologic: Affect normal, judgement normal, mood normal. [] Current Patient Data Vital Signs Vital Signs Date Time Temp Pulse Resp B/P (MAP) Pulse Ox O2 Delivery O2 Flow Rate FiO2 10/02/19 13:00 57 24 130/94 (106) 57 Room Air 10/02/19 12:30 98.5 EKG EKG [] Radiology/Procedures Radiology/Procedures [] Course & Med Decision Making Course & Med Decision Making Pertinent Labs and Imaging studies reviewed. (See chart for details) Patient got Woodrow of the nurses and stormed out of the emergency room AGAINST MEDICAL ADVICE. He was given one 5 mg Valium by mouth, but the rest of his workup had not been done yet. He did not return. The patient left AMA. [] Dragon Disclaimer Dragon Disclaimer This electronic medical record was generated, in whole or in part, using a voice recognition dictation system. Departure Departure: Impression: Primary Impression: Seizure Disposition: 07 AGAINST MEDICAL ADVICE Condition: GUARDED KEEGAN HERNANDEZ DO Oct 02, 2019 18:23
== END 2019-10-02 13:15 | disposition left against medical advice (07) ==
LOC: ER 12:26
DX: G40.89 Other seizures (principal); R55 Syncope and collapse; F41.9 Anxiety disorder, unspecified; F31.9 Bipolar disorder, unspecified; E11.9 Type 2 diabetes mellitus without complications; F17.210 Nicotine dependence, cigarettes, uncomplicated
CPT/HCPCS: 99282; 99283

== ENCOUNTER 2019-10-04 11:35 | Emergency (ER) | payer SELFPAY ==
[~2019-10-04] VITALS: Ht 175.3 cm; Wt 64.9 kg
[2019-10-04] MEDS ORDERED: levETIRAcetam 500 MG TABLET PO STA (11:42)
[2019-10-04] MEDS ORDERED: diazePAM 5 MG TABLET PO ONE (11:45)
[2019-10-04 11:48] VITALS: BP 152/100
[2019-10-04] MEDS ORDERED: DIAZ5TAB PO (12:02)
--- NOTE | 2019-10-04 13:39 | PHYS DOC ---
Past History Past Medical History: Anxiety, Bipolar, Depression, Diabetes, Seizure Additional Past Medical Histor: dx 2009 with DM Past Surgical History: No Surgical History Smoking: Cigarettes Alcohol Use: None Drug Use: None Adult General Chief Complaint Chief Complaint: SEIZURE HPI HPI Patient is a 28-year-old male presenting with chief complaint of possible seizure activity. 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 He says he is afraid that is going to he really does not want to but he worries when these spells come on he gets worried because his kids see it he really thinks he needs something for the worrying Blood sugar was 134 for the paramedics note no trauma was noted patient did have an extensive workup when he was here last time labs looked good and reviewed those. Review of Systems Review of Systems Constitutional: Denies fever or chills [] Eyes: Denies change in visual acuity, redness, or eye pain [] He does feel palpitations intermittently Neurologic: Denies headache, focal weakness or sensory changes [] All other systems were reviewed and found to be within normal limits, except as documented in this note. Current Medications Current Medications Current Medications Medications (Trade) Dose Ordered Sig/Chris Start Time Stop Time Status Last Admin Dose Admin Diazepam (Valium) 5 mg 1X ONCE 10/04/19 11:45 10/04/19 11:46 DC Levetiracetam (Keppra) 1,000 mg 1X STAT 10/04/19 11:42 10/04/19 11:43 DC Allergies Allergies Allergies Coded Allergies Type Severity Reaction Last Updated Verified No Known Drug Allergies 02/09/16 No Physical Exam Physical Exam Constitutional: Well developed, well nourished, no acute distress, non-toxic appearance. [] HENT: Normocephalic, atraumatic, bilateral external ears normal, oropharynx moist, no oral exudates, nose normal. [] Eyes: PERRLA, EOMI, conjunctiva normal, no discharge. [] Neck: Normal range of motion, no tenderness, supple, no stridor. [] Cardiovascular:Heart rate regular rhythm, no murmur [] Lungs & Thorax: Bilateral breath sounds clear to auscultation [] Abdomen: Bowel sounds normal, soft, no tenderness, no masses, no pulsatile masses. [] Skin: Warm, dry, no erythema, no rash. [] Back: No tenderness, no CVA tenderness. [] Extremities: No tenderness, no cyanosis, no clubbing, ROM intact, no edema. [] Neurologic: Alert and oriented X 3, normal motor function, normal sensory function, no focal deficits noted. [] Psychologic: Significant anxiety is noted patient is tearful during history taking denies suicidal ideation adamantly Current Patient Data Vital Signs Vital Signs Date Time Temp Pulse Resp B/P (MAP) Pulse Ox O2 Delivery O2 Flow Rate FiO2 10/04/19 11:48 93 26 97 Room Air Lab Results * Mild Blood Pressure Systolic * 152 mm Hg (100-140) H Blood Pressure Diastolic * 100 mm Hg (60-100) Blood Pressure Mean * 117 mm Hg Pulse Rate * 93 beats per minute (60-90) H Respiratory Rate * 26 breaths per minute (12-24) H Oxygen Delivery Method * Room Air Bedside Pulse Oximetry * 97 % Treatment Prior to Arrival * No Complaint of Pain * No Pain Assessment Label * Right * Pain Location Hip EKG EKG [] Radiology/Procedures Radiology/Procedures [] Course & Med Decision Making Course & Med Decision Making Pertinent Labs and Imaging studies reviewed. (See chart for details) []28-year-old male brought in by Jatinder after a seizure. He does have anxiety and pseudoseizures on my history taking there appears to be a significant anxiety component and he is tearful he says he isn't really worried that he is going to he just can't shake that feeling he really thinks he needs Valium. I tend to agree. I gave him a prescription for this and recommended that he also take the Keppra that has been prescribed to him as well. Dragon Disclaimer Dragon Disclaimer This electronic medical record was generated, in whole or in part, using a voice recognition dictation system. Departure Departure: Impression: Primary Impression: Anxiety Disposition: 01 HOME, SELF-CARE Condition: STABLE Patient Instructions: Anxiety and Panic Attacks, [id number] Scripts Diazepam (VALIUM) 5 Mg Tablet 5 MG PO TID PRN for ANXIETY / AGITATION, #15 TAB Prov: NOBLE NICOLE MD 10/04/19 NOBLE NICOLE MD Oct 04, 2019 13:39
== END 2019-10-04 12:10 | disposition home or self-care (01) ==
LOC: ER 11:35
DX: F41.9 Anxiety disorder, unspecified (principal); G40.909 Epilepsy, unspecified, not intractable, without status epilepticus; F31.9 Bipolar disorder, unspecified; E11.9 Type 2 diabetes mellitus without complications; F17.210 Nicotine dependence, cigarettes, uncomplicated
CPT/HCPCS: 99284